=== PATIENT | female | born 1960 | race Two or more races ===

== ENCOUNTER 2021-07-21 09:15 | Outpatient (CLI) | payer OTHER | END 2021-07-21 09:25 | disposition home or self-care (01) | LOC: RAD 09:15 | PROVIDERS: ATTEND Colon & Rectal Surgery | DX: K59.09 Other constipation (principal) ==

== ENCOUNTER 2022-04-15 12:00 | Inpatient (IN) | payer OTHER ==
[~2022-04-15] VITALS: Ht 157.5 cm; Wt 62.1 kg
[2022-04-15] MEDS ORDERED: TENORMIN100 M1 PO (13:20)
[2022-04-15] MEDS ORDERED: CRESTOR10 MG PO (13:21)
[2022-04-15] MEDS ORDERED: COZAAR50 MG PO (13:21)
[2022-04-15] MEDS ORDERED: CLONAZEPAM0.5 MG PO (13:21)
[2022-04-15] MEDS ORDERED: LEXAPRO20 MG PO (13:21)
== END 2022-04-23 16:41 | disposition home or self-care (01) | DRG 331 ==
LOC: SURH 04-21 07:00 → O/R 04-21 09:42 → SURH 04-21 12:00
PROVIDERS: ADMIT Colon & Rectal Surgery; ATTEND Colon & Rectal Surgery
PROC: 0DBP4ZZ Excision of Rectum, Percutaneous Endoscopic Approach (ICD-10-PCS; 2022-04-21)
PROC: 0DJ08ZZ Inspection of Upper Intestinal Tract, Via Natural or Artificial Opening Endoscopic (ICD-10-PCS; 2022-04-21)
PROC: 0DTN4ZZ Resection of Sigmoid Colon, Percutaneous Endoscopic Approach (ICD-10-PCS; principal; 2022-04-21 07:00)
DX: K58.1 Irritable bowel syndrome with constipation (principal); K59.02 Outlet dysfunction constipation; K59.09 Other constipation; Z20.822 Contact with and (suspected) exposure to COVID-19; I11.9 Hypertensive heart disease without heart failure